=== PATIENT | male | born 2000 | race Caucasian/White ===

== ENCOUNTER 2021-02-22 21:10 | Emergency (ER) | payer OTHER, SELFPAY ==
[2021-02-22 21:17] VITALS: BP 151/80; PULSE 100; RESP 16; TEMP 36.4; O2SAT 97; BMI 29.1
[2021-02-22 23:03] VITALS: BP 145/79; PULSE 92; RESP 18; O2SAT 99
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
== END 2021-02-22 23:03 | disposition home or self-care (01) ==
PROVIDERS: Emergency Provider Emergency Medicine; PCP Nurse Practitioner
DX: S71.112A Laceration without foreign body, left thigh, initial encounter (principal); W26.1XXA Contact with sword or dagger, initial encounter
CPT/HCPCS: 12032; 99283